=== PATIENT | male | born 1980 | race Caucasian/White ===

== ENCOUNTER 2016-07-21 08:57 | Emergency (ER) | payer BC ==
[~2016-07-21] VITALS: Ht 182.9 cm; Wt 83.0 kg
[~2016-07-21 08:57] MED LIST: BACL20TA PO; MORP1CAP63 PO
[2016-07-21 09:05] VITALS: PULSE 120; RESP 15; TEMP 97.8; O2SAT 94
[2016-07-21] MEDS ORDERED: OXYC-395 PO (09:19)
[2016-07-21] MEDS ORDERED: GABA300C5 PO (09:19)
--- NOTE | 2016-07-21 09:35 | PD ---
HPI Chief Complaint: Bite or Sting Time Seen by Provider: 09:24 Travel History International Travel<30 days: No Contact w/Intl Traveler<30days: No Traveled to known affect area: No History of Present Illness HPI Patient is a 36-year-old male with history of chronic pain syndrome who presents the emergency department with complaint of left arm pain. Patient states that he was bit by something in the left antecubital fossa approximately a week ago. He believes this to be a black . Patient states one to 2 days later he went to pain management, he sees Dr. Lux, and they did something to manipulate the neck. Since, patient has had pain, burning and sharp that radiates from the neck down to the left arm. Patient notes that this is most uncomfortable in the trapezius and forearm region. He has not noticed any swelling, redness, fluctuance around the bite site, nor any fevers or chills. Denies IV drug abuse. Patient has been taking his home hydrocodone 10/325, gabapentin 300 mg 3 times a day without much improvement in symptoms. PFSH Past Medical History Anxiety: Yes Depression: Yes Cancer: No Cardiovascular Problems: No COPD: Yes Diminished Hearing: No Endocrine: No Immune Disorder: No Kidney Stones: Yes Musculoskeletal: No Psychiatric: Yes Reproductive: No Respiratory: Yes Influenza Vaccination: No ?: Not Past Surgical History Thoracic Surgery: Yes ("R lung scraping") Other Surgery: Yes (LUNG SURGERY) Social History Alcohol Use: No Tobacco Use: Yes Substance Use: No Allergies-Medications (Allergen,Severity, Reaction): Coded Allergies: No Known Allergies (Unverified , 07/21/16) Reported Meds & Prescriptions Reported Meds & Active Scripts Active Reported Gabapentin 300 Mg Cap 300 Mg PO QID Oxycodone (Oxycodone HCl) 10 Mg Tab 10 Mg PO Q6H PRN Review of Systems Except as stated in HPI: all other systems reviewed are Neg Physical Exam Narrative GENERAL: Well-appearing male in no acute distress SKIN: Warm and dry. HEAD: Normocephalic. EYES: No scleral icterus. No injection or drainage. ENT: Mucous membranes pink and moist. NECK: Supple CARDIOVASCULAR: Initially tachycardic with heart rate in the 120s, normalized upon recheck. No murmur RESPIRATORY: No accessory muscle use. MUSCULOSKELETAL: No midline tenderness to palpation of the cervical spine. 5 out of 5 strength in the bilateral upper extremities. There is no appreciable redness, erythema around stated bite site on the antecubital fossa. No fluctuance. No track chavarria. Patient has good distal sensation, pulses. NEUROLOGICAL: Awake and alert. Subjective paresthesias around the tricep and dorsal forearm on the left upper extremity. Normal speech. PSYCHIATRIC: Appropriate mood and affect; insight and judgment normal. Data Data Last Documented VS Vital Signs Date Time Temp Pulse Resp B/P Pulse Ox O2 Delivery O2 Flow Rate FiO2 07/21/16 09:36 100 18 118/57 96 Room Air 07/21/16 09:05 97.8 Orders Ketorolac Inj (Toradol Inj) (07/21/16 09:45) [facility] Medical Decision Making Medical Screen Exam Complete: Yes Emergency Medical Condition: Yes Medical Record Reviewed: Yes Differential Diagnosis 36-year-old male here with complaint of left upper extremity pain. Patient attributes his symptoms to a bug bite but clinically there is no evidence of infection, cellulitis or abscess and I think that this is entirely unrelated. His symptoms started after he had a cervical spine manipulated at pain management and I think his symptoms are more likely due to cervical radiculopathy. He describes a classic burning, sharp radiating pain from the neck. Patient is neurovascularly intact and does not warrant further workup in the emergency department. He has a chronic pain syndrome and appears to have acute exacerbation of same. Narrative Course Patient was given 60 mg IM Toradol and discharged home with increase of his home gabapentin and outpatient pain management follow-up. Diagnosis Primary Impression: Cervical radiculopathy Referrals: Pain Management 2 days Call on Saturday for follow-up appointment Patient Instructions: Cervical Radiculopathy (ED), General Instructions Additional Instructions: Apply ice, heat to the affected area. Tylenol, ibuprofen as needed for pain. Increased home gabapentin from 300 mg 3 times a day to 300 mg 4 times a day. Follow-up with pain management on Saturday as discussed. Med/Other Pt SpecificInfo: Existing Med Changed Disposition: DISCHARGE HOME Condition: Stable Mary Cordova MD Jul 21, 2016 09:35
[2016-07-21 09:36] VITALS: BP 118/57; PULSE 100; RESP 18; O2SAT 96
[2016-07-21] MEDS ORDERED: KETOROLAC TROMETHAMINE 60 MG/2 ML (IM) VIAL IM ONE (09:45)
== END 2016-07-21 09:51 | disposition home or self-care (01) ==
LOC: PHEFT 08:57
DX: M54.12 Radiculopathy, cervical region (principal); G89.4 Chronic pain syndrome
CPT/HCPCS: 96372; 99283; J1885

== ENCOUNTER 2016-08-08 18:50 | Emergency (ER) | payer BC, OTHER ==
[~2016-08-08 18:50] MED LIST changes: -BACL20TA PO; +GABA300C5 PO; -MORP1CAP63 PO; +OXYC-395 PO
[2016-08-08 19:18] VITALS: BP 111/71; PULSE 91; RESP 16; TEMP 97.8; O2SAT 93
[2016-08-08] MEDS ORDERED: SODIUM CHLOR 0.9% 1000 ML INJ 1,000 ML IV ONE (20:00)
[2016-08-08] MEDS: SODIUM CHLORIDE 0.9% FLUSH 10 ML FLUSH IVF PRN (20:26)
[2016-08-08 20:33] LABS: AUTOMATED NEUTROPHIL # 13.1 TH/MM3 (1.8-7.7); BASOPHIL # 0.1 TH/MM3 (0-0.2); BASOPHIL % 0.5 % (0.0-2.0); EOSINOPHIL # 0.2 TH/MM3 (0-0.4); EOSINOPHIL % 1.1 % (0.0-4.0); HEMATOCRIT 41.6 % (39.0-51.0); HEMO FLAGS DIFF FINAL; LYMPH % 16.9 % (9.0-44.0); LYMPHOCYTE # 2.9 TH/MM3 (1.0-4.8); MEAN CELL VOLUME 87.2 FL (80.0-100.0); MEAN CORPUSCULAR HEMOGLOBIN 29.7 PG (27.0-34.0); MEAN CORPUSCULAR HGB CONC 34.1 % (32.0-36.0); MONO % 4.7 % (0.0-8.0); NEUT % 76.8 % (16.0-70.0); PLATELET COUNT 244 TH/MM3 (150-450); RED BLOOD COUNT 4.78 MIL/MM3 (4.50-5.90); RED CELL DISTRIBUTION WIDTH 13.9 % (11.6-17.2)
--- NOTE | 2016-08-08 20:34 | PD ---
HPI Chief Complaint: Alcohol/Drug Intoxication Time Seen by Provider: 19:44 Travel History International Travel<30 days: No Contact w/Intl Traveler<30days: No Traveled to known affect area: No History of Present Illness HPI Patient is a 36-year-old male who presents to emergency room with police officers under a Bunch's Act. As per police officers, patient was found sleeping in a pond and appeared intoxicated. Patient was unable to ambulate so he was brought to the ER under Bunch's Act. Patient denies use of drugs, alcohol, denies si/hi. Reports "i don't know why I'm so tired." PFSH Past Medical History Anxiety: Yes Depression: Yes Cancer: No Cardiovascular Problems: No COPD: Yes Diminished Hearing: No Endocrine: No Immune Disorder: No Kidney Stones: Yes Musculoskeletal: Yes (CHRONIC PAIN) Psychiatric: Yes Reproductive: No Respiratory: Yes Past Surgical History Thoracic Surgery: Yes ("R lung scraping") Other Surgery: Yes (LUNG SURGERY) Social History Alcohol Use: No Tobacco Use: Yes Substance Use: No Allergies-Medications (Allergen,Severity, Reaction): Coded Allergies: No Known Allergies (Unverified , 08/08/16) Reported Meds & Prescriptions Reported Meds & Active Scripts Active Reported Xanax (Alprazolam) 1 Mg Tab 1 Mg PO Q6H PRN Gabapentin 300 Mg Cap 300 Mg PO QID Oxycodone (Oxycodone HCl) 10 Mg Tab 10 Mg PO Q6H PRN Review of Systems General / Constitutional: No: Fever Eyes: No: Visual changes HENT: No: Headaches Cardiovascular: No: Chest Pain or Discomfort Respiratory: No: Shortness of Breath Gastrointestinal: No: Abdominal Pain Genitourinary: No: Dysuria Musculoskeletal: No: Pain Skin: No Rash Neurologic: No: Weakness Psychiatric: Positive: Substance Abuse, No: Depression Endocrine: No: Polydipsia Hematologic/Lymphatic: No: Easy Bruising Physical Exam Narrative GENERAL: NAD, Patient appears intoxicated SKIN: Focused skin assessment warm/dry. HEAD: Atraumatic. Normocephalic. EYES: Pupils pinpoint. No scleral icterus. No injection or drainage. ENT: No nasal bleeding or discharge. Mucous membranes pink and moist. NECK: Trachea midline. No JVD. CARDIOVASCULAR: Regular rate and rhythm. No murmur appreciated. RESPIRATORY: No accessory muscle use. Clear to auscultation. Breath sounds equal bilaterally. GASTROINTESTINAL: Abdomen soft, non-tender, nondistended. Hepatic and splenic margins not palpable. MUSCULOSKELETAL: No obvious deformities. No clubbing. No cyanosis. No edema. NEUROLOGICAL: Awake and alert. Normal speech. PSYCHIATRIC: Patient sedated, denies si/hi Data Data Last Documented VS Vital Signs Date Time Temp Pulse Resp B/P Pulse Ox O2 Delivery O2 Flow Rate FiO2 08/08/16 21:08 88 18 110/64 95 Room Air 08/08/16 19:18 97.8 Orders Complete Blood Count With Diff (08/08/16 19:51) Comprehensive Metabolic Panel (08/08/16 19:51) Oximetry (08/08/16 19:51) Iv Access Insert/Monitor (08/08/16 19:51) Sodium Chloride 0.9% Flush (Ns Flush) (08/08/16 20:00) Drug Screen, Random Urine (08/08/16 19:51) Alcohol (Ethanol) (08/08/16 19:51) Sodium Chlor 0.9% 1000 Ml Inj (Ns 1000 M (08/08/16 20:00) Ct Brain W/O Iv Contrast(Rout) (08/08/16 22:41) Chest, Single Ap (08/08/16 23:17) Ketorolac Inj (Toradol Inj) (08/09/16 00:00) Sodium Chlor 0.9% 1000 Ml Inj (Ns 1000 M (08/09/16 00:00) Labs Laboratory Tests Test 08/08/16 08/08/16 20:20 23:59 White Blood Count 17.0 TH/MM3 Red Blood Count 4.78 MIL/MM3 Hemoglobin 14.2 GM/DL Hematocrit 41.6 % Mean Corpuscular Volume 87.2 FL Mean Corpuscular Hemoglobin 29.7 PG Mean Corpuscular Hemoglobin 34.1 % Concent Red Cell Distribution Width 13.9 % Platelet Count 244 TH/MM3 Mean Platelet Volume 9.0 FL Neutrophils (%) (Auto) 76.8 % Lymphocytes (%) (Auto) 16.9 % Monocytes (%) (Auto) 4.7 % Eosinophils (%) (Auto) 1.1 % Basophils (%) (Auto) 0.5 % Neutrophils # (Auto) 13.1 TH/MM3 Lymphocytes # (Auto) 2.9 TH/MM3 Monocytes # (Auto) 0.8 TH/MM3 Eosinophils # (Auto) 0.2 TH/MM3 Basophils # (Auto) 0.1 TH/MM3 CBC Comment DIFF FINAL Differential Comment Sodium Level 137 MEQ/L Potassium Level 3.8 MEQ/L Chloride Level 103 MEQ/L Carbon Dioxide Level 26.8 MEQ/L Anion Gap 7 MEQ/L Blood Urea Nitrogen 18 MG/DL Creatinine 1.30 MG/DL Estimat Glomerular Filtration 62 ML/MIN Rate Random Glucose 81 MG/DL Calcium Level 8.9 MG/DL Total Bilirubin 0.5 MG/DL Aspartate Amino Transf 15 U/L (AST/SGOT) Alanine Aminotransferase 25 U/L (ALT/SGPT) Alkaline Phosphatase 93 U/L Total Protein 7.0 GM/DL Albumin 4.1 GM/DL Ethyl Alcohol Level LESS THAN 3 MG/DL Urine Opiates Screen POS Urine Barbiturates Screen NEG Urine Amphetamines Screen NEG Urine Benzodiazepines Screen POS Urine Cocaine Screen NEG Urine Cannabinoids Screen NEG MDM Medical Decision Making Medical Screen Exam Complete: Yes Emergency Medical Condition: Yes Interpretation(s) Vital Signs Date Time Temp Pulse Resp B/P Pulse Ox O2 Delivery O2 Flow Rate FiO2 08/08/16 19:18 97.8 91 16 111/71 93 Differential Diagnosis alcohol intoxication, drug abuse, drug overdose Narrative Course Patient is a 36-year-old male who presents to emergency room with police officers after he was found intoxicated under a pond. Patient was unable to ambulate and had no one to pick him up, patient was placed under Bunch's Act. Patient appears under the influence of a substance at this time. he denies si/ hi. Plan to monitor patient, will obtain tox screens and give IVF Last Impressions Chest X-Ray 08/08/16 [id number] Signed Impressions: Service Date/Time: Monday, August 08, 2016 23:14 - CONCLUSION: No acute disease. Davonte Horn MD Head CT 08/08/16 2241 Signed Impressions: Service Date/Time: Monday, August 08, 2016 23:59 - CONCLUSION: No acute intracranial disease. Davonte Horn MD Laboratory Tests Test 08/08/16 08/08/16 20:20 23:59 White Blood Count 17.0 TH/MM3 (4.0-11.0) Red Blood Count 4.78 MIL/MM3 (4.50-5.90) Hemoglobin 14.2 GM/DL (13.0-17.0) Hematocrit 41.6 % (39.0-51.0) Mean Corpuscular Volume 87.2 FL (80.0-100.0) Mean Corpuscular Hemoglobin 29.7 PG (27.0-34.0) Mean Corpuscular Hemoglobin 34.1 % Concent (32.0-36.0) Red Cell Distribution Width 13.9 % (11.6-17.2) Platelet Count 244 TH/MM3 (150-450) Mean Platelet Volume 9.0 FL (7.0-11.0) Neutrophils (%) (Auto) 76.8 % (16.0-70.0) Lymphocytes (%) (Auto) 16.9 % (9.0-44.0) Monocytes (%) (Auto) 4.7 % (0.0-8.0) Eosinophils (%) (Auto) 1.1 % (0.0-4.0) Basophils (%) (Auto) 0.5 % (0.0-2.0) Neutrophils # (Auto) 13.1 TH/MM3 (1.8-7.7) Lymphocytes # (Auto) 2.9 TH/MM3 (1.0-4.8) Monocytes # (Auto) 0.8 TH/MM3 (0-0.9) Eosinophils # (Auto) 0.2 TH/MM3 (0-0.4) Basophils # (Auto) 0.1 TH/MM3 (0-0.2) CBC Comment DIFF FINAL Differential Comment Sodium Level 137 MEQ/L (136-145) Potassium Level 3.8 MEQ/L (3.5-5.1) Chloride Level 103 MEQ/L (98-107) Carbon Dioxide Level 26.8 MEQ/L (21.0-32.0) Anion Gap 7 MEQ/L (5-15) Blood Urea Nitrogen 18 MG/DL (7-18) Creatinine 1.30 MG/DL (0.60-1.30) Estimat Glomerular Filtration 62 ML/MIN (>89) Rate Random Glucose 81 MG/DL (74-106) Calcium Level 8.9 MG/DL (8.5-10.1) Total Bilirubin 0.5 MG/DL (0.2-1.0) Aspartate Amino Transf 15 U/L (15-37) (AST/SGOT) Alanine Aminotransferase 25 U/L (12-78) (ALT/SGPT) Alkaline Phosphatase 93 U/L (45-117) Total Protein 7.0 GM/DL (6.4-8.2) Albumin 4.1 GM/DL (3.4-5.0) Ethyl Alcohol Level LESS THAN 3 MG/DL (0-5) Urine Opiates Screen POS (NEG) Urine Barbiturates Screen NEG (NEG) Urine Amphetamines Screen NEG (NEG) Urine Benzodiazepines Screen POS (NEG) Urine Cocaine Screen NEG (NEG) Urine Cannabinoids Screen NEG (NEG) Patient walking around emergency room in no acute distress, patient denies SI or HI, patient will follow-up with primary care doctor return to emergency room as needed. Patient instructed to stop using drugs. Diagnosis Primary Impression: Accidental drug overdose Qualified Code: T50.901A - Accidental drug overdose, initial encounter Additional Impression: Leukocytosis Qualified Code: D72.829 - Leukocytosis, unspecified type Patient Instructions: General Instructions Additional Instructions: stop using drugs Please follow up with your primary care doctor in 2-3 days Return to emergency room as needed Disposition: 01 DISCHARGE HOME Condition: Stable Rachel Lyle DO Aug 08, 2016 20:34
[2016-08-08 21:08] VITALS: BP 110/64; PULSE 88; RESP 18; O2SAT 95
[2016-08-08] MEDS ORDERED: XANA1TAB2 PO (21:17)
[2016-08-08 21:56] LABS: ANION GAP 7 MEQ/L (5-15)
[2016-08-08 21:59] LABS: ALKALINE PHOSPHATASE 93 U/L (45-117); ALT (GPT) 25 U/L (12-78); AST (GOT) 15 U/L (15-37); BICARBONATE 26.8 MEQ/L (21.0-32.0); BLOOD UREA NITROGEN 18 MG/DL (7-18); CHLORIDE 103 MEQ/L (98-107); GLOMERULAR FILTRATION RATE 62 ML/MIN (>89); POTASSIUM 3.8 MEQ/L (3.5-5.1); SODIUM (NA) 137 MEQ/L (136-145); TOTAL BILIRUBIN ADULT 0.5 MG/DL (0.2-1.0)
--- NOTE | 2016-08-08 23:34 | RADRPT ---
EXAM DATE/TIME: 08/08/2016 23:14 [facility] COMPARISON: CHEST SINGLE AP, March 10, 2014, 18:44. INDICATIONS : Cough, shortness of breath MEDICAL HISTORY : None. SURGICAL HISTORY : Right thoracotomy ENCOUNTER: Initial ACUITY: 1 day PAIN SCORE: Non-responsive. LOCATION: Bilateral chest FINDINGS: A single view of the chest demonstrates the lungs to be symmetrically aerated without evidence of mas s, infiltrate or effusion. Scarring along the right mid lung again seen. The cardiomediastinal contou rs are unremarkable. Osseous structures are intact. CONCLUSION: No acute disease. Davonte Horn MD on August 08, 2016 at 23:32 Board Certified Radiologist. This report was verified electronically.
[2016-08-09] MEDS ORDERED: KETOROLAC TROMETHAMINE 30 MG/ML (IVP) VIAL IV PUSH ONE
[2016-08-09] MEDS ORDERED: SODIUM CHLOR 0.9% 1000 ML INJ 1,000 ML IV ONE
--- NOTE | 2016-08-09 00:12 | RADRPT ---
EXAM DATE/TIME: 08/08/2016 23:59 [facility] COMPARISON: CT BRAIN W/O CONTRAST, April 02, 2015, 23:39. INDICATIONS : Altered mental status. RADIATION DOSE: 44.32 CTDIvol (mGy) MEDICAL HISTORY : Chronic obstructive pulmonary disease. Renal calculi. SURGICAL HISTORY : None. ENCOUNTER: Initial ACUITY: 1 day PAIN SCALE: 2/10 LOCATION: cranial TECHNIQUE: Multiple contiguous axial images were obtained of the head. Using automated exposure control and adj ustment of the mA and/or kV according to patient size, radiation dose was kept as low as reasonably a chievable to obtain optimal diagnostic quality images. FINDINGS: CEREBRUM: The ventricles are normal for age. No evidence of midline shift, mass lesion, hemorrhage or acute in farction. No extra-axial fluid collections are seen. POSTERIOR FOSSA: The cerebellum and brainstem are intact. The 4th ventricle is midline. The cerebellopontine angle i s unremarkable. EXTRACRANIAL: The visualized portion of the orbits is intact. SKULL: The calvaria is intact. No evidence of skull fracture. CONCLUSION: No acute intracranial disease. Davonte Horn MD on August 09, 2016 at 0:09 Board Certified Radiologist. This report was verified electronically.
[2016-08-09 00:18] LABS: AMPHETAMINE, URINE NEG (NEG); BARBITURATES, URINE NEG (NEG); COCAINE, URINE NEG (NEG)
[2016-08-09] MEDS: SODIUM CHLORIDE 0.9% FLUSH 10 ML FLUSH IVF PRN (00:41)
[2016-08-09 03:07] VITALS: BP 118/78
== END 2016-08-09 03:10 | disposition home or self-care (01) ==
LOC: NEDAMB 18:50 → NEPE 08-09 03:10
DX: T50.901A Poisoning by unspecified drugs, medicaments and biological substances, accidental (unintentional), initial encounter (principal); D72.829 Elevated white blood cell count, unspecified; Z79.899 Other long term (current) drug therapy
CPT/HCPCS: 70450; 71010; 80053; 80307; 85025; 96361; 96374; 99284; J1885; J7030

== ENCOUNTER → 2017-06-18 | Day surgery (SDC) | payer OTHER ==
[~2017-06-18] VITALS: Ht 203.2 cm; Wt 78.5 kg
[~2017-06-18] MED LIST changes: +*morphine SULFATE 10 MG/ML PERIprocedure ONLY ONE; +BETAMETHASONE SOD PHOS/ACETATE SUSP 30 MG/5 ML VIAL ONE; +BUPIVACAINE/EPINEPHRINE 0.25% 50 ML VIAL ONE; +CHLORHEXIDINE GLUCONATE 2 % 1 PACK (2 CLOTHS) TOPICAL PRN; +CHLORHEXIDINE GLUCONATE 4% SOLN 120 ML BTL TOPICAL SCH; +CYCL10TA PO; +DEXAMETHASONE SOD PHOS 4 MG/ML VIAL IV ONE; +DO NOT ADM ANY ANTICOAGULANT DRUGS PRN; +GELATIN 12 MM/7 MM FOAM ONE; +GENTAMICIN SULFATE 80 MG/2 ML VIAL ONE; +GLYCOPYRROLATE 1 MG/5 ML SYRINGE IV PUSH ONE; +INSULIN HUMAN REGULAR 1,000 UNITS/10 ML VIAL SQ PRN; +KETOROLAC TROMETHAMINE 30 MG/ML (IVP) VIAL IV PUSH ONE; +LACTATED RINGER'S 1000 ML INJ 2,000 ML IV ONE; +LACTATED RINGER'S 1000 ML IV PRN; +LIDOCAINE HCL 1% PF 5 ML SYRINGE OTHER ONE; +LISI20TA PO; +LORA-474 PO; +METOPROLOL TARTRATE 25 MG TAB PO PRN; +MIDAZOLAM HCL 2 MG/2 ML VIAL ONE; +MORPHINE SULFATE 2 MG/ML INJ IV PUSH PRN; +NEOSTIGMINE 5 MG/5 ML SYRINGE IV PUSH ONE; +ONDANSETRON HCL 4 MG/2 ML VIAL IV ONE; +ONDANSETRON HCL 4 MG/2 ML VIAL IV PUSH PRN; +PHENYLEPH/NS 1000 MCG/10 ML SYR IV ONE; +POVIDONE IODINE 5% (ANTISEPSIS KIT) 4 APPLICATIONS EACH NARE PRN; +PROPOFOL 200 MG/20 ML AMP IV ONE; +Post-op Orders (for Pharmacy) XX ONE; +ROCURONIUM INJ 50 MG/5 ML SYRINGE IV PUSH ONE; +SODIUM CHLORID 0.9% 500 ML IV PRN; +SODIUM CHLORIDE 0.9% FLUSH 10 ML FLUSH IV FLUSH PRN; +SODIUM CHLORIDE 0.9% FLUSH 10 ML FLUSH IV FLUSH SCH; +ceFAZolin 2 GM PREMIX 50 ML IV SCH; +oxyCODONE/ACETAMINOPHEN 5 MG/325 MG TAB PO PRN
[2017-06-18 08:28] LABS: AUTOMATED NEUTROPHIL # 14.5 TH/MM3 (1.8-7.7); BASOPHIL # 0.1 TH/MM3 (0-0.2); BASOPHIL % 0.6 % (0.0-2.0); EOSINOPHIL # 0.6 TH/MM3 (0-0.4); EOSINOPHIL % 2.9 % (0.0-4.0); HEMATOCRIT 40.9 % (39.0-51.0); LYMPHOCYTE # 5.1 TH/MM3 (1.0-4.8); MEAN CELL VOLUME 88.8 FL (80.0-100.0); MEAN CORPUSCULAR HEMOGLOBIN 30.5 PG (27.0-34.0); MEAN CORPUSCULAR HGB CONC 34.3 % (32.0-36.0); MEAN PLATELET VOLUME 7.8 FL (7.0-11.0); MONO % 8.1 % (0.0-8.0); MONOCYTE # 1.8 TH/MM3 (0-0.9); NEUT % 65.4 % (16.0-70.0); PLATELET COUNT 383 TH/MM3 (150-450); RED BLOOD COUNT 4.61 MIL/MM3 (4.50-5.90); WHITE BLOOD COUNT 22.2 TH/MM3 (4.0-11.0)
[2017-06-18 08:35] LABS: INTERNATIONAL NORMALIZED RATIO 0.9 RATIO; PROTHROMBIN TIME - PATIENT 9.3 SEC (9.8-11.6)
[2017-06-18 08:44] LABS: BICARBONATE 33.1 MEQ/L (21.0-32.0); CREATININE 1.41 MG/DL (0.60-1.30)
--- NOTE | 2017-06-18 13:03 | PD.OP ---
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 Surgeon: Krissy Gómez Hypo Dipper(s): None Operation and Findings: EBL: Approximately 50 cc Complications: None Specimens: None Indications for procedure: Patient is a 37-year-old male who presented to my clinic with several months of persistent left leg pain and mild low back pain. Patient was found to have a left L5-S1 paracentral disc herniation with persistent left lower extremity radiculopathy despite nonoperative management with activity modification, physical therapy, medications and injections. Option of a left L5-S1 hemilaminectomy was discussed with the patient. Risks of surgery including but not limited to: Infection, neurologic injury including possible paralysis, CSF leak, persistent or worsening symptoms, adjacent segment disease, recurrent disc herniation, and other unforeseen consultations were all discussed with the patient. At this time he did consent to the procedure. Description of procedure: The patient was brought back to the operating room. Gen. anesthesia then ensued. The patient was then placed prone on the operating room table with all bony prominences well-padded. The patient was prepped and draped in standard sterile fashion. A timeout was performed to identify the correct patient, location, and procedure to be performed. Preoperative antibiotics were given prior to incision. The level, L5-S1, was identified with fluoroscopy and a central midline incision was made through the skin and subcutaneous tissue. A small incision was made in the fascia just left of the spinous process. The dilating tubes were then placed down onto the lamina and verified to be over the L5-S1 disc space on fluoroscopy. The dilators were subsequently upsized and retractors were then placed. Again, level verification of L5-S1 disc space was verified. An AP was also taken to verify a left sided approach. The lamina out were cleared with the use of pituitary and Bovie. A high-speed bur was then used to create a small hemilaminectomy on the left side at the L5-S1 disc space. The ligamentum was then removed with Kerrisons and micropituitary's. The exiting L5 nerve was identified and freed from compression. The S1 nerve was then found to be dorsally displaced due to a large paracentral disc herniation at L5- S1 and the lateral recess. This nerve was identified and mobilized medially to allow access to the disc space and disc herniation. A small annulotomy was made into the disc herniation and a large approximately 1 cm disc herniation was removed. The disc space was then cleaned with pituitaries until the S1 nerve root on the left along with the ventral thecal sac was free of compression. Angiocath irrigation was placed into the disc space and irrigated to ensure there were no loose pieces of disc fragments. Careful hemostasis was achieved with the use of thrombus static agents and bipolar cautery. A small piece of Gelfoam laden with Celestone approximate 1 mg was then placed over the L5 and S1 nerve roots to allow for elution of Celestone over the next few days. The retractors were removed and hemostasis was achieved in the muscle and fascia layers. The wound was irrigated. Hemostasis was achieved with the use of bipolar electrocautery and thrombostatic agent. The fascia was then closed with deep #0 Vicryl. The subcutaneous tissue was closed with 2-0 Vicryl and the skin closed with Nylon. A sterile dressing was placed. Patient was then placed back onto stretcher and awoken from general anesthesia without complication. It should be noted the patient remained hemodynamically stable throughout the procedure. Disposition: Patient will be mobilized today. Patient was instructed to avoid bending, lifting greater than 10 pounds, and twisting. Patient was advised to avoid prolonged sitting. Patient will be discharged from the postoperative area. Krissy Gómez MD Jun 18, 2017 13:03
[2017-06-18 14:45] VITALS: BP 112/71; PULSE 97; RESP 20; TEMP 98; O2SAT 93
--- NOTE | 2017-06-18 16:43 | RADRPT ---
EXAM DATE/TIME: 06/18/2017 10:50 [facility] COMPARISON: No previous studies available for comparison. INDICATIONS : Lumbar spine L5-S1 laminectomy and left discectomy. OR. MEDICAL HISTORY : Chronic obstructive pulmonary disease. Renal calculi. SURGICAL HISTORY : None. ENCOUNTER: Initial ACUITY: 1 day PAIN SCORE: Non-responsive. LOCATION: Lumbar spine L5-S1 FINDINGS: 2 images are recorded digitally in the operating room using C-arm during lumbar surgery. CONCLUSION: Intraoperative images. Prem Solis MD on June 18, 2017 at 16:41 Board Certified Radiologist. This report was verified electronically.
== END | disposition home or self-care (01) ==
LOC: HSDC 07:02
PROVIDERS: ATTEND Orthopaedic Surgery Orthopaedic Surgery of the Spine
DX: M51.16 Intervertebral disc disorders with radiculopathy, lumbar region (principal); M47.26 Other spondylosis with radiculopathy, lumbar region; M79.662 Pain in left lower leg; M54.5 Low back pain; J44.9 Chronic obstructive pulmonary disease, unspecified; Z01.818 Encounter for other preprocedural examination; Z87.891 Personal history of nicotine dependence
CPT/HCPCS: 00630; 63030; 72100; 76000; 80048; 85025; 85610; 85730; J0690; J0702; J1100; J1580; J1885; J2250; J2270; J2370; J2405; J2710; J3010; J7120

== ENCOUNTER → 2017-09-19 | Outpatient (CLI) | payer OTHER ==
[~2017-09-19] MED LIST changes: -*morphine SULFATE 10 MG/ML PERIprocedure ONLY ONE; -BETAMETHASONE SOD PHOS/ACETATE SUSP 30 MG/5 ML VIAL ONE; -BUPIVACAINE/EPINEPHRINE 0.25% 50 ML VIAL ONE; -CHLORHEXIDINE GLUCONATE 2 % 1 PACK (2 CLOTHS) TOPICAL PRN; -CHLORHEXIDINE GLUCONATE 4% SOLN 120 ML BTL TOPICAL SCH; -DEXAMETHASONE SOD PHOS 4 MG/ML VIAL IV ONE; -DO NOT ADM ANY ANTICOAGULANT DRUGS PRN; -GELATIN 12 MM/7 MM FOAM ONE; -GENTAMICIN SULFATE 80 MG/2 ML VIAL ONE; -GLYCOPYRROLATE 1 MG/5 ML SYRINGE IV PUSH ONE; -INSULIN HUMAN REGULAR 1,000 UNITS/10 ML VIAL SQ PRN; -KETOROLAC TROMETHAMINE 30 MG/ML (IVP) VIAL IV PUSH ONE; -LACTATED RINGER'S 1000 ML INJ 2,000 ML IV ONE; -LACTATED RINGER'S 1000 ML IV PRN; -LIDOCAINE HCL 1% PF 5 ML SYRINGE OTHER ONE; -METOPROLOL TARTRATE 25 MG TAB PO PRN; -MIDAZOLAM HCL 2 MG/2 ML VIAL ONE; -MORPHINE SULFATE 2 MG/ML INJ IV PUSH PRN; -NEOSTIGMINE 5 MG/5 ML SYRINGE IV PUSH ONE; -ONDANSETRON HCL 4 MG/2 ML VIAL IV ONE; -ONDANSETRON HCL 4 MG/2 ML VIAL IV PUSH PRN; -PHENYLEPH/NS 1000 MCG/10 ML SYR IV ONE; -POVIDONE IODINE 5% (ANTISEPSIS KIT) 4 APPLICATIONS EACH NARE PRN; -PROPOFOL 200 MG/20 ML AMP IV ONE; -Post-op Orders (for Pharmacy) XX ONE; -ROCURONIUM INJ 50 MG/5 ML SYRINGE IV PUSH ONE; -SODIUM CHLORID 0.9% 500 ML IV PRN; -SODIUM CHLORIDE 0.9% FLUSH 10 ML FLUSH IV FLUSH PRN; -SODIUM CHLORIDE 0.9% FLUSH 10 ML FLUSH IV FLUSH SCH; -ceFAZolin 2 GM PREMIX 50 ML IV SCH; -oxyCODONE/ACETAMINOPHEN 5 MG/325 MG TAB PO PRN
[2017-09-19 12:56] LABS: AUTOMATED NEUTROPHIL # 9.3 TH/MM3 (1.8-7.7); BASOPHIL # 0.1 TH/MM3 (0-0.2); BASOPHIL % 0.4 % (0.0-2.0); EOSINOPHIL # 0.2 TH/MM3 (0-0.4); EOSINOPHIL % 1.8 % (0.0-4.0); HEMATOCRIT 40.2 % (39.0-51.0); HEMOGLOBIN 13.4 GM/DL (13.0-17.0); LYMPH % 20.1 % (9.0-44.0); LYMPHOCYTE # 2.6 TH/MM3 (1.0-4.8); MEAN CELL VOLUME 89.7 FL (80.0-100.0); MEAN CORPUSCULAR HEMOGLOBIN 29.8 PG (27.0-34.0); MEAN CORPUSCULAR HGB CONC 33.3 % (32.0-36.0); MEAN PLATELET VOLUME 8.3 FL (7.0-11.0); MONO % 6.1 % (0.0-8.0); MONOCYTE # 0.8 TH/MM3 (0-0.9); NEUT % 71.6 % (16.0-70.0); PLATELET COUNT 286 TH/MM3 (150-450); RED BLOOD COUNT 4.48 MIL/MM3 (4.50-5.90); RED CELL DISTRIBUTION WIDTH 14.2 % (11.6-17.2)
[2017-09-19 13:04] LABS: BILIRUBIN, URINE NEG (NEG); BLOOD, URINE NEG (NEG); GLUCOSE,URINE NEG (NEG); KETONE, URINE NEG (NEG); MUCUS URINE FEW /lpf (OCC); NITRITE,URINE NEG (NEG); PH, URINE 5.5 (5.0-8.5); URINE COLOR YELLOW (YELLW/STRAW); URINE LEUKOCYTE ESTERASE NEG (NEG)
[2017-09-19 13:19] LABS: ALBUMIN 3.7 GM/DL (3.4-5.0); ALT (GPT) 24 U/L (12-78); AST (GOT) 16 U/L (15-37); BICARBONATE 24.3 MEQ/L (21.0-32.0); BLOOD UREA NITROGEN 12 MG/DL (7-18); CALCIUM 8.9 MG/DL (8.5-10.1); CHLORIDE 108 MEQ/L (98-107); CHOLESTEROL 233 MG/DL (120-200); CREATININE 0.84 MG/DL (0.60-1.30); GLOMERULAR FILTRATION RATE 102 ML/MIN (>89); GLUCOSE,FASTING 95 MG/DL (74-99); IRON (FE) 76 MCG/DL (65-175); SODIUM (NA) 141 MEQ/L (136-145); TRIGLYCERIDES 175 MG/DL (42-150)
[2017-09-19 13:20] LABS: RHEUMATOID FACTOR SCREEN NEGATIVE (NEGATIVE)
[2017-09-19 14:19] LABS: % SATURATION IRON PROFILE 22.5 % (20-50); ALKALINE PHOSPHATASE 83 U/L (45-117); CHOLESTEROL/ HDL RATIO 6.95 RATIO; FERRITIN 71 NG/ML (26-388); FOLATE 14.5 NG/ML (3.1-17.5); HDL CHOLESTEROL 33.5 MG/DL (40.0-60.0); LDL CHOLESTEROL 165 MG/DL (0-99); TOTAL BILIRUBIN ADULT 0.3 MG/DL (0.2-1.0); TOTAL IRON BINDING CAPACITY 337 MCG/DL (250-450); TOTAL PROTEIN 7.1 GM/DL (6.4-8.2)
[2017-09-19 17:34] LABS: HEMOGLOBIN A1C 5.2 % (4.3-6.0)
[2017-09-24 17:50] LABS: BETA2 GLYCOPROTEIN I AB IGA LESS THAN 9.0 SAU (< OR = 20); BETA2 GLYCOPROTEIN I AB IGG LESS THAN 9.0 SGU (< OR = 20); BETA2 GLYCOPROTEIN I AB IGM LESS THAN 9.0 SMU (< OR = 20); PHOS SERINE AB IGA LESS THAN 20 U/mL (<20)
[2017-09-25 07:53] LABS: CARDIOLIPIN AB IGA LESS THAN 11.0 APL (0-11)
== END ==
LOC: CLAB 12:02
PROVIDERS: ATTEND Family Medicine
DX: I12.9 Hypertensive chronic kidney disease with stage 1 through stage 4 chronic kidney disease, or unspecified chronic kidney disease (principal); N18.9 Chronic kidney disease, unspecified; M54.5 Low back pain; M54.2 Cervicalgia; F41.8 Other specified anxiety disorders; J44.9 Chronic obstructive pulmonary disease, unspecified; Z00.00 Encounter for general adult medical examination without abnormal findings; D72.829 Elevated white blood cell count, unspecified; R82.99 Other abnormal findings in urine
CPT/HCPCS: 36415; 80053; 80061; 81001; 82306; 82550; 82607; 82728; 82746; 83036; 83540; 83550; 83615; 83970; 84153; 84403; 84443; 84550; 85025; 85652; 86038; 86140; 86146; 86147; 86148; 86430; 87086